=== PATIENT | male | born 1960 | race Caucasian/White ===

== ENCOUNTER → 2020-10-28 | Outpatient (CLI) | payer MEDICARE ==
[~2020-10-28] MED LIST: BAYER ASPIRIN C81 MG PO; CALCIUM600 M2 PO; CARBIDOPA AND L1 OD1 PO; CO Q-10200 MG PO; FERROUS SULFAT324 M2 PO; FLOMAX0.4 MG PO; FORTEO2.4 ML IM; GABAPENTIN600 MG PO; HYDROXYCHLOROQ200 M1 PO; LEXAPRO20 MG PO; NITROSTAT0.4 MG SL; OMEPRAZOLE40 MG PO; PREDNISONE5 M1 PO; VITAMIN D-32000 UNI1 PO; ZONISAMIDE50 M1 PO
== END | disposition home or self-care (01) ==
LOC: US 13:30
PROVIDERS: ATTEND Nurse Practitioner Adult Health
DX: M79.81 Nontraumatic hematoma of soft tissue (principal); M79.89 Other specified soft tissue disorders

== ENCOUNTER → 2023-07-18 | Outpatient (CLI) | payer MEDICARE | END | disposition home or self-care (01) | LOC: RAD 14:21 | PROVIDERS: ATTEND Nurse Practitioner Family | DX: S91.331A Puncture wound without foreign body, right foot, initial encounter (principal); M77.31 Calcaneal spur, right foot; X58.XXXA Exposure to other specified factors, initial encounter; Y93.89 Activity, other specified; Y92.89 Other specified places as the place of occurrence of the external cause; Y99.8 Other external cause status ==